=== PATIENT | male | born 1935 | race Caucasian/White ===

== ENCOUNTER 2016-11-30 06:06 | Inpatient (IN) | payer MEDICARE ==
[2016-11-30] MEDS ORDERED: HEPARIN 5000 UNITS/ML VIAL ONE (06:27)
[2016-11-30 07:04] LABS: AUTOMATED BASOPHIL 0.6 % (0-2); AUTOMATED EOSINOPHIL 2.1 % (0-5); AUTOMATED LYMPH 12.4 % (17-44); AUTOMATED MONOCYTE 7.2 % (3-10); AUTOMATED NEUTROPHIL 77.7 % (45-76); MPV 6.6 fL (7.4-10.4)
[2016-11-30 07:05] LABS: BLOOD UREA NITROGEN 13 MG/DL (9-20); CALCIUM 9.2 MG/DL (8.4-10.2); CALCULATED OSMOLALITY 263 MOs/Kg (270-290); CHLORIDE 100 mEq/L (98-107); GLUCOSE 119 MG/DL (70-99); SODIUM LEVEL 136 mEq/L (137-146)
[2016-11-30] MEDS ORDERED: ONDANSETRON HCL 4 MG/2 ML VIAL IV PRN ×2 (07:09→09:12)
[2016-11-30] MEDS ORDERED: PROMETHAZINE 25 MG/ML VIAL IV PRN (07:09)
[2016-11-30] MEDS ORDERED: ONDANSETRON HCL 4 MG ODT TAB PO PRN (07:09)
[2016-11-30] MEDS ORDERED: MEPERIDINE 25 MG/ML TUBEX IV PRN (07:09)
[2016-11-30] MEDS ORDERED: hydrALAZINE 20 MG/ML VIAL IV PRN (07:09)
[2016-11-30] MEDS ORDERED: LABETALOL 20 MG/4 ML SYRINGE IV PRN (07:09)
[2016-11-30] MEDS ORDERED: FENTANYL 100 MCG/2 ML VIAL IV PRN (07:09)
[2016-11-30] MEDS ORDERED: HYDROmorphone 1 MG INJECTION IV PRN ×2 (07:09)
--- NOTE | 2016-11-30 07:09 | SC.ANESPOS ---
[id number], Hemodynamically Stable, Pain Control Adequate Phase I & II Recovery Complete: Yes Apparent Anesthesia Complication: No : N PACU Discharge Time: 12:00 - Vital Signs Blood Pressure: 139/58 Pulse: 86 Resp Rate: 18 O2 Sat: 98 Temp: 98.8 F - Comments Anesthesia Discharge Time Report Time 12:00
--- NOTE | 2016-11-30 07:18 | HIM.ANES ---
Anesthesia Evaluation & Plan Diagnoses: CALCULUS IN BLADDER (11/30/16) OTHER RETENTION OF URINE (11/30/16) - Focused Review of Systems Cardiac History: Yes: Hx Hypertension, Hx Cardiac Catheterization (2006), Hx Coronary Stent (09/06/2007 STENT LAD), Hx Cardia Arrhythmia (PVC'S), Hx Cardiac Disorders HEENT: Yes: Hx Hearing Impairment, Cataract Removal, Other HEENT Problems Hx Other HEENT Surgery: TONSILLECTOMT Hx Other HEENT Problems: RHINNITIS Gastrointestinal: Yes: Hx Gastrointestinal Disorders, Hx Chronic Constipation, Hx Colonoscopy (POLYPECTOMY) No: Hx Gastroesophageal Reflux Disease Genitourinary: Yes: Hx Renal Disease (STAGE 2) Neurological/Musculoskeletal: Yes: Hx Neurological Disorders Other Neurological Problems: MEMORY LOSS Psychological: No Hx Depression, No Hx Mental/Emotional Disorders Endocrine: Yes: Hx Diet Controlled Diabetes Blood/Autoimmune: Yes: Hx Anemia No: Hx Blood Transfusions, Hx AIDS, Hx Hepatitis (type) Smoking Status: Former smoker Past Social History: Denies: Substance Use Disorder Hx Stress Test (date): Yes (07/28/2014EF 60% NO ISCHEMIA) Hx Echocardiogram (date): No Hx Chest Xray (date): No Surgical History: Yes: Ureter Stent (JJ) Other Surgical History: TONSILLECTOMT CYSTOSCOPY 11/21/16, 11/23/16 SKIN LESION REMOVAL FROM FACE - Focused Physical Exam Mallampati: Class II Thyromental Distance: Greater than 3 Neck: Full Range of Motion Dental: Normal - no significant findings Cardiovascular/Chest: Normal Respiratory: Lungs clear Any problems with anesthesia, including nausea and vomiting?: No Beta Letha given (if appropriate): N/A Does the patient have a history of Motion Sickness-: No Other: Problem List Problem Status Onset Cognitive impairment Acute Coronary artery disease Acute Hypertension Acute Intractable pain Acute Non-insulin dependent type 2 diabetes mellitus Acute Renal insufficiency Acute Sinus bradycardia Acute Stones in the urinary tract Acute Syncope Acute CBC/BMP/Other 11/30/16 06:40 11/30/16 06:40 Allergies Allergy/AdvReac Type Severity Reaction Status Date / Time No Known Allergies Allergy Verified 03/09/16 21:08 Home Medications Medication Instructions Recorded Last Taken Type Ascorbate Calcium [Vitamin C] 500 mg PO DAILY 10/31/14 11/18/16 History Aspirin (Enteric Coated) [Halfprin] 81 mg PO DAILY 10/31/14 11/24/16 09:43 History Calcium 500 mg PO DAILY 10/31/14 11/18/16 History Donepezil HCl [Aricept] 10 mg PO BID 10/31/14 11/18/16 History Lisinopril [Prinivil] 20 mg PO DAILY 10/31/14 11/24/16 09:43 History Multivitamin [Multiple Vitamins] 1 tab PO DAILY 10/31/14 11/24/16 11:45 History Simvastatin [Zocor] 40 mg PO DAILY 10/31/14 11/24/16 09:43 History Acetaminophen [Tylenol] 650 mg PO Q4-6H PRN 11/19/16 11/29/16 History Terazosin HCl [Hytrin] 4 mg PO DAILY 11/19/16 11/24/16 09:43 History Ciprofloxacin HCl [Cipro] 500 mg PO BID 11/24/16 11/29/16 History Hydrocodone/Acetaminophen [Vicodin 1 tab PO Q6H PRN 11/24/16 11/24/16 09:46 History 5-300 mg Tablet] Clopidogrel Bisulfate [Plavix] 75 mg PO DAILY 11/29/16 2 Weeks Ago History Doxycycline [Vibramycin] 100 mg PO BID 11/29/16 2 Weeks Ago History Finasteride [Proscar] 10 mg PO DAILY 11/29/16 2 Weeks Ago History Fish Oil/Dha/Epa [Fish Oil 1,200 2 each PO DAILY 11/29/16 2 Weeks Ago History mg Fish Oil] Naproxen Sodium [Aleve] 220 mg PO BID PRN 11/29/16 Unknown History Nitroglycerin Sublingual Tab [NTG 0.4 mg SL .Q5MIN X 3 PRN 11/29/16 Unknown History (NitroStat Sublingual Tab)] Ropinirole HCl [Requip] 0.25 mg PO HS PRN 11/29/16 2 Weeks Ago History Height and Weight Patient's height 5 ft 9 in Patient's weight 179 lb 6 oz BMI 26.4 - Anesthetic Plan Anesthesia Type: General ASA Class: 3 -: I have examined this patient and reviewed the medical record. The patient has been assessed prior to anesthesia. Risks and benefits of anesthesia and anesthetic technique options have been discussed and all questions answered. The patient accepts the risk and desires me to proceed with the planned anesthetic.
[2016-11-30] MEDS ORDERED: Levofloxacin 500 mg/100 ml D5W 500 MG/100 ML RTU IV ONE (07:20)
[2016-11-30 07:26] LABS: LEUKOCYTES/URINE 2+ (NEGATIVE); NITRITE/URINE NEG (NEGATIVE); RBC/URINE TNTC (0-2); URINE OCCULT BLOOD 3+ (NEG/TRACE); WBC/URINE TNTC (0-2)
[2016-11-30] MEDS ORDERED: [UNRECOGNIZED DRUG - OTHER] PO PRN (09:10)
[2016-11-30] MEDS ORDERED: ACETAMINOPHEN PO PRN (09:10)
[2016-11-30] MEDS ORDERED: ACETAMINOPHEN 325 MG/TAB TABLET PO PRN (09:10)
[2016-11-30] MEDS ORDERED: ROPINIROLE HCL 0.25 MG TABLET PO PRN (09:10)
[2016-11-30] MEDS ORDERED: HYDROCODONE PO PRN (09:10)
[2016-11-30] MEDS ORDERED: NITROGLYCERINE 0.4 MG TAB SL PRN (09:10)
[2016-11-30] MEDS ORDERED: HYDROmorphone 50 ML IV PRN (09:12)
--- NOTE | 2016-11-30 09:27 | HIMOPRPT ---
FINDING: DATE OF PROCEDURE: 11/30/16 PREOPERATIVE DIAGNOSIS: [BPH WITH BLADDER STONE ]. POSTOPERATIVE DIAGNOSIS: [ BPH WITH BLADDER STONE]. PROCEDURE PERFORMED: [SIMPLE RETROPUBIC PROSTATECTOMY AND VESICAL LITHOTOMY ]. ANESTHESIA: GENERAL [ ]. SURGEON: Macho Prabhakar MD/DR. SAL PROCEDURE IN DETAIL: [ THIS PATIENT WAS TAKEN TO THE OPERATING ROOM WAS GIVEN GENERAL ANESTHESIA HE WAS THEN PLACED IN SUPINE POSITION--HE WAS THEN PREPPED AND DRAPED IN USUAL STERILE FASHION ORIGINAL KAYE CATHETER HAD ALREADY BEEN REMOVED--- A TRANSVERSE INCISION WAS MADE FOR ABOUT 5 INCH --A FINGERBREADTH ABOVE THE SYMPHYSIS PUBIS WAS CARRIED THROUGH THE SUBCUTANEOUS TISSUE AND THE ANTERIOR RECTUS SHEATH]. THE UPPER AND LOWER LEAVES OF THE STATUS SHEATH CAREFULLY DISSECTED OFF FROM UNDERLYING MUSCLE WITH THE HELP OF CAUTERY-- THEN A SELF-RETAINING RETRACTOR WAS PLACED IN THE RETROPUBIC SPACE AND THE ANTERIOR SURFACE OF THE PROSTATE CAPSULE WAS NOW EXPOSED--- 2 STAY SUTURES WERE PLACED IN THE MIDLINE 1 AT THE BLADDER NECK AND THE OTHER 2 CM BELOW THAT USING 0 CHROMIC CATGUT SUTURE--- WITH THE HELP OF HER LONG-HANDLED CAUTERY INCISION WAS MADE IN THE ANTERIOR PROSTATIC CAPSULE ABOUT 5 CM THEN WITH THE HELP OF METZENBAUM SCISSORS BLUNT AND SHARP DISSECTION WAS CARRIED OUT BETWEEN THE CAPSULE AND THE ADENOMA-- FINALLY WITH THE HELP OF FINGER DISSECTION ENUCLEATION OF THE PROSTATIC ADENOMA WAS CARRIED OUT FOSSA WAS INSPECTED FOR ANY BLEEDERS WHICH WERE FULGURATED UNDER SUTURE-LIGATED BLADDER NECK WAS INSPECTED WE COULD SEE THE LOWER END OF THE DOUBLE-J STENT AND A BLADDER STONE THE BLADDER WAS REMOVED---A [address] KAYE CATHETER WAS PASSED THROUGH THE URETHRA THROUGH THE PROSTATIC FOSSA INTO THE BLADDER AND BALLOON INITIALLY INSTILLED WITH 15 CC OF WATER--- ANTERIOR PROSTATIC CAPSULE WAS CLOSED WITH 2 SEPARATE 0 CHROMIC CATGUT SUTURES STARTING FROM EACH ANGLE OF THE INCISION COMING TO THE MIDLINE--- ONCE THE CAPSULE WAS COMPLETELY CLOSED THE BALLOON WAS FILLED WITH A TOTAL OF 45 CC OF WATER CATHETER SEEMED TO BE QUITE FREE AND THEN A CONTINUOUS BLADDER IRRIGATION WAS STARTED--- A DRAIN WAS PLACED IN THE PRE RETROPUBIC SPACE AND BROUGHT OUT THROUGH A STAB WOUND BELOW THE MAIN INCISION ON THE LEFT SIDE AND ANCHORED TO THE SKIN WITH THE HELP OF TO A 2 O SILK SUTURE---TO RECTI MUSCLES WERE APPROXIMATED TOGETHER WITH THE HELP OF 0 CHROMIC INTERRUPTED CATGUT SUTURES--- FASCIA WAS CLOSED THE HELP OF INTERRUPTED 0 ETHIBOND SUTURES ---SUBCUTANEOUS LAYER WAS CLOSED THE HELP 0 3 VICRYL SUTURES AND SKIN WAS CLOSED WITH THE HELP OF ZACHERY---STERILE DRESSING WAS APPLIED OVER THE MAIN OPERATIVE SITE AND UROSTOMY THE DRAIN WAS PLACED OVER THE DRAIN SITE PATIENT TOLERATED THE PROCEDURE WELL AND WAS RETURNED TO THE RECOVERY ROOM AREA IN SATISFACTORY CONDITION HE LOST ABOUT 300 CC OF BLOOD OF WHICH 150 CC WAS REPLACED WITH THE HELP OF CELL SAVER.
[2016-11-30] MEDS: FENTANYL 100 MCG/2 ML VIAL IV PRN ×2 (09:42→10:05)
[2016-11-30] MEDS ORDERED: FENTANYL 100 MCG/2 ML VIAL ONE (09:43)
[2016-11-30] MEDS ORDERED: HYDROmorphone 1 MG INJECTION ONE (10:26)
[2016-11-30] MEDS ORDERED: HYDROmorphone 50 ML IV ONE (11:06)
[2016-11-30] MEDS ORDERED: FENTANYL 250 MCG/5 ML VIAL IV ONE (11:13)
[2016-11-30] MEDS ORDERED: PROPOFOL 200 MG/20 ML VIAL IV ONE (11:13)
[2016-11-30] MEDS ORDERED: ONDANSETRON HCL 4 MG/2 ML VIAL IV ONE (11:13)
[2016-11-30] MEDS ORDERED: LIDOCAINE 100 MG PFS IV ONE (11:13)
[2016-11-30] MEDS ORDERED: GLYCOPYRROLATE 1 MG VIAL IM ONE (11:13)
[2016-11-30] MEDS ORDERED: NEOSTIGMINE 1 MG/1 ML (1:1000) INJ 10 ML MDV IM ONE (11:13)
[2016-11-30] MEDS ORDERED: MIDAZOLAM 2 MG/2 ML VIAL IV ONE (11:13)
[2016-11-30] MEDS ORDERED: ROCURONIUM 50 MG/5 ML VIAL IV ONE (11:13)
[2016-11-30] MEDS: D5W/LR 1,000 ML IV SCH ×3 (13:11→21:58)
[2016-11-30] MEDS: TERAZOSIN 1 MG CAP PO SCH (13:12)
[2016-11-30] MEDS: LISINOPRIL 20 MG TAB PO SCH (13:12)
[2016-11-30] MEDS: DONEPEZIL HCL 10 MG TAB PO SCH ×2 (13:12→21:59)
[2016-11-30] MEDS: OMEGA-3-ACID ETHYL ESTERS 1000 MG CAP PO SCH (13:12)
[2016-11-30] MEDS: SIMVASTATIN 40 MG TAB PO SCH (13:13)
[2016-11-30] MEDS: VITAMINS, MULTIPLE CAP PO SCH (13:16)
[2016-11-30] MEDS: CALCIUM CARBONATE 500 MG TAB PO SCH (13:16)
[2016-11-30] MEDS: ASCORBIC ACID 500 MG TAB PO SCH (13:16)
[2016-11-30] MEDS ORDERED: Vaccine Screening Complete SCH (14:00)
[2016-11-30] MEDS: HYDROCODONE 5 MG/ACETAMIN 325 MG TAB PO PRN (21:57)
[2016-12-01] MEDS: D5W/LR 1,000 ML IV SCH ×3 (05:06→16:41)
[2016-12-01 07:33] LABS: AUTOMATED BASOPHIL 0.5 % (0-2); AUTOMATED EOSINOPHIL 0.5 % (0-5); AUTOMATED LYMPH 7.9 % (17-44); AUTOMATED MONOCYTE 6.4 % (3-10); AUTOMATED NEUTROPHIL 84.7 % (45-76); MPV 6.6 fL (7.4-10.4)
[2016-12-01 07:37] LABS: BLOOD UREA NITROGEN 12 MG/DL (9-20); CALCIUM 8.6 MG/DL (8.4-10.2); CALCULATED OSMOLALITY 261 MOs/Kg (270-290); CHLORIDE 101 mEq/L (98-107); GLUCOSE 149 MG/DL (70-99); SODIUM LEVEL 134 mEq/L (137-146)
[2016-12-01] MEDS: Levofloxacin 500 mg/100 ml D5W 500 MG/100 ML RTU IV SCH (08:59)
[2016-12-01] MEDS ORDERED: FISH OIL PO SCH (09:00)
[2016-12-01] MEDS ORDERED: EPA PO SCH (09:00)
[2016-12-01] MEDS ORDERED: DHA PO SCH (09:00)
[2016-12-01] MEDS ORDERED: Non-Formulary Medication ITEM (Multivitamin [Multiple Vitamins] 1 TAB) PO SCH (09:00)
[2016-12-01] MEDS ORDERED: CALCIUM 500 MG PO SCH (09:00)
[2016-12-01] MEDS ORDERED: TERAZOSIN HCL 4 MG PO SCH (09:00)
[2016-12-01] MEDS ORDERED: ASCORBATE CALCIUM 500 MG PO SCH (09:00)
[2016-12-01] MEDS: DONEPEZIL HCL 10 MG TAB PO SCH ×2 (09:20→19:53)
[2016-12-01] MEDS: SIMVASTATIN 40 MG TAB PO SCH (09:21)
[2016-12-01] MEDS: LISINOPRIL 20 MG TAB PO SCH (09:21)
[2016-12-01] MEDS: TERAZOSIN 1 MG CAP PO SCH (09:21)
[2016-12-01] MEDS: OMEGA-3-ACID ETHYL ESTERS 1000 MG CAP PO SCH (09:21)
[2016-12-01] MEDS: HYDROCODONE 5 MG/ACETAMIN 325 MG TAB PO PRN (10:24)
[2016-12-01] MEDS: CALCIUM CARBONATE 500 MG TAB PO SCH (11:34)
[2016-12-01] MEDS: VITAMINS, MULTIPLE CAP PO SCH (11:34)
[2016-12-01] MEDS: ASCORBIC ACID 500 MG TAB PO SCH (11:34)
--- NOTE | 2016-12-01 13:21 | PCM.UROPRO ---
Chief Complaint: PAIN AT OPERATION SITE Post Op Day #: 1 Post-op Assessment: Reports: Feels better, Pain is less, Tolerating liquids well Patient care reviewed: Yes Patient care reviewed and discussed with Nursing - Physical Exam Vital Signs: Temperature: 99.4 F (12/01/16 10:15) HR: 91 (12/01/16 10:15) RR: 18 (12/01/16 10:15) BP: 105/51 (12/01/16 10:15) Pulse Ox: 95 (12/01/16 10:15) General: Alert, Cooperative HEENT: Normal Respiratory: Normal - CTA Gastrointestinal: Soft, Bowel Sounds (NORMAL), Other (MINIMAL DRAINAGE FROM DRAIN SITE) Genitourinary: Catheter in Place Musculoskeletal/Extremities: Normal pulses Skin: Warm,Dry and Intact Result Diagrams: 12/01/16 06:52 12/01/16 06:52 Plan: OUT OF BED---PT TO HELP WITH AMBULATION FULL LIQUID---REG DIET
[2016-12-01] MEDS ORDERED: NS 500 ML IV ONE (15:20)
[2016-12-01] MEDS ORDERED: Medication Hold Instructions SCH (16:00)
--- NOTE | 2016-12-01 17:29 | HIMCONSMED ---
Consultation Date: 12/01/16 Requesting Physician: Macho Prabhakar Consulting Doctor: Apryl Flanagan Consult Reason: Medical Management Mr. Angel Mccullough is an 81 year old gentleman with prostate cancer who underwent suprapubic prostatectomy by Dr. Prabhakar. He has a history of anemia , some mild dementia, and hypertension but has developed post-operative hypotension. His hemoglobin was 11.2 on admission and has dropped to 8.8 post- operatively. so he was transfused one unit of blood by Dr. Prabhakar, and a medical consult was requested. His blood pressure is running around 90/40 but usually is closer to 150/76. He is diabetic. Chief Complaint: LOW BLOOD PRESSURE - Past Medical and Surgical History Cardiac History: Reports: Coronary Artery Disease, Hypertension, Cardiac Catheterization (2006), Hypercholesterolemia Respiratory History: Reports: COPD GI/ History: Reports: Renal Disease (STAGE 2), Kidney Stones, Gastroesophageal Reflux, Diverticulosis Systemic History: Reports: Anemia, Diabetes Musculoskeletal History: Reports: Osteoarthritis Psychological History: Denies: Depression, Substance Use Disorder Neurological History: Reports: Dementia (vascular) Past Surgical History: Reports: Cardiac Catheterization (2006), Other ( prostatectomy) Allergies No Known Allergies Allergy (Verified 11/30/16 12:24) Home Medications Ascorbate Calcium [Vitamin C] 500 mg PO DAILY 10/31/14 Aspirin (Enteric Coated) [Halfprin] 81 mg PO DAILY 10/31/14 Calcium 500 mg PO DAILY 10/31/14 Donepezil HCl [Aricept] 10 mg PO BID 10/31/14 Lisinopril [Prinivil] 20 mg PO DAILY 10/31/14 Multivitamin [Multiple Vitamins] 1 tab PO DAILY 10/31/14 Simvastatin [Zocor] 40 mg PO DAILY 10/31/14 Acetaminophen [Tylenol] 650 mg PO Q4-6H PRN 11/19/16 Terazosin HCl [Hytrin] 4 mg PO DAILY 11/19/16 Ciprofloxacin HCl [Cipro] 500 mg PO BID 11/24/16 Hydrocodone/Acetaminophen [Vicodin 5-300 mg Tablet] 1 tab PO Q6H PRN 11/24/16 Clopidogrel Bisulfate [Plavix] 75 mg PO DAILY 11/29/16 Fish Oil/Dha/Epa [Fish Oil 1,200 mg Fish Oil] 2 each PO DAILY 11/29/16 Nitroglycerin Sublingual Tab [NTG (NitroStat Sublingual Tab)] 0.4 mg SL .Q5MIN X 3 PRN 11/29/16 Ropinirole HCl [Requip] 0.25 mg PO HS PRN 11/29/16 - Social History Travel Outside of [place] in the Last 3 Months?: No Lives: with Spouse Smoking Status: Former smoker Social History: Denies: Alcohol Use, Substance Use Disorder - Family History Reports: Hypertension, Diabetes (BROTHER), Cancer (Mother colon cancer) - Review of Systems Yes Review of systems cannot be obtained due to the patient's medical condition Constitutional: Fatigue, Weakness, Weight loss Eyes: No Symptoms Reported, Cataracts Ears: Hearing Loss Nose: Congestion Mouth: Denture, Dry Mouth, Poor Dentition Throat/Neck: No Symptoms Reported, Snoring. negative: Pain, Swelling, Masses, Hoarseness, Thyroid enlargement Respiratory: Cough, Shortness of Breath, Wheezing, Dyspnea Cardiovascular: Orthopnea, PND. negative: Chest Pain, Edema Gastrointestinal: Nausea, Abdominal Pain. negative: Vomiting, Diarrhea, Melena , Dysphasia, Heartburn, Appetite Changes Genitourinary: Frequency, Hematuria, Flank Pain, Nocturia, Benign prostatic hyperplasia (BPH) Neurological: Dizziness, Headache, Numbness, Tremors, Changes in Orientation Integumentary: Itching, Pressure Sore (buttocks) Allergic/Immunologic: No Symptoms Reported Hematologic: Easy Bruising, Easy Bleeding, Anemia Endocrine: Weight Loss, Cold Intolerance Psychiatric: Anxiety, Depression - Physical Exam Vital Signs: Initial Vitals Temperature 97.9 F 11/30/16 07:40 Pulse Rate 72 11/30/16 07:40 Respiratory Rate 18 11/30/16 07:40 Blood Pressure 173/74 11/30/16 07:40 Pulse Oxygen Saturation 97 11/30/16 07:40 Constitutional: No apparent distress, Alert, Cachectic, Other (thin elderly whit man) Oriented to: Person, Place - HEENT Head: Normal Eye: Normal (PERRL: EOMI) Oropharynx: Normal, Membranes Dry, Other (dentures). negative: Exudate, Red Tympanic Membrane: Dull ENT EAC: Cerumen Nose: No Symptoms Reported. negative: Bleeding, Congestion, Discharge, Deformity Respiratory: Normal - CTA, Diminished. negative: Rales, Wheezes Cardiovascular: Normal (regular rhythm and rate). negative: Diastolic murmur, Systolic murmur - GI Auscultation: Normal Palpation: Normal (soft, nontender without mass) Tenderness: Non tender Tracy's Sign: Negative Rectal Exam: Deferred - Musculoskeletal Back: Normal Extremities: Normal Spine: non-tender, normal alignment, normal inspection - Integumentary Skin: Warm, Dry Lymphatics: Normal - Neurologic Memory Impaired: Short-term Motor Function: Normal Cranial Nerve: Normal Cerebellar: Normal Mood Description: Anxious Thought: Coherent Perception: Normal - Lab Results Laboratory Tests 12/01/16 12/01/16 06:52 06:52 WBC 9.0 Hgb 8.8 L D Hct 26.0 L Plt Count 322 Neut % (Auto) 84.7 H Lymph % (Auto) 7.9 L [place] % (Auto) 6.4 Sodium 134 L Potassium 4.1 Chloride 101 Carbon Dioxide 28 Anion Gap 9 BUN 12 Creatinine 0.80 Estimated GFR (MDRD) > 60 Glucose 149 H Calculated Osmolality 261 L Calcium 8.6 - Assessment (1) Hypotension I95.9 - HYPOTENSION, UNSPECIFIED Acute Present on Admission: Yes Qualifiers: Hypotension type: postprocedural hypotension Trimester: T Qualified Code( s): I95.81 - Postprocedural hypotension Will give additional IV fluids tonight, monitor H/H and transfuse as needed. syncopal episode could be due to sepsis or infection. Will culture urine and blood. He is already on IV Levaquin from Dr. Prabhakar. (2) Coronary artery disease I25.10 - ATHSCL HEART DISEASE OF [place] CORONARY ARTERY W/O ANG PCTRS Acute Qualifiers: Coronary Disease-Associated Artery/Lesion type: [place] artery [place] vs. transplanted heart: [place] heart Associated angina: without angina Qualified Code(s): I25.10 - Atherosclerotic heart disease of [place] coronary artery without angina pectoris History of CAD. Continuation of his IVAN-inhibitor at lower dose, and a statin. He apparently is unable to tolerate beta blockade as he is not taking this. Restart antiplatelet drugs in 5-7 days or when okay with Dr. PRABHAKAR. (3) Renal insufficiency N28.9 - DISORDER OF KIDNEY AND URETER, UNSPECIFIED Acute Present on Admission: Yes Continue to monitor closely. (4) Anemia in chronic kidney disease N18.9 - CHRONIC KIDNEY DISEASE, UNSPECIFIED; D63.1 - ANEMIA IN CHRONIC KIDNEY DISEASE Chronic Present on Admission: Yes Would hydrate patient first and follow renal function, O2 sat and H/H. If doing okay probably does not require further transfusion, unless he is having chest pain or other unstable symptoms. (5) Kidney stones N20.0 - CALCULUS OF KIDNEY Resolved Present on Admission: Yes F/U Per Dr. Prabhakar. Has ureteral stent. (6) Cognitive impairment R41.89 - OTH SYMPTOMS AND SIGNS W COGNITIVE FUNCTIONS AND AWARENESS Chronic Present on Admission: Yes No evidence of reversible cause for cognitive decline. Patient becomes very emotional. Case Care Discussed with: Patient, Family, Nursing Staff Total Time: 65 min
[2016-12-01] MEDS ORDERED: D5W/LR 1,000 ML IV SCH (19:13)
[2016-12-01] MEDS ORDERED: NS 1,000 ML IV ONE (19:24)
[2016-12-01] MEDS: NS 1,000 ML IV SCH ×2 (19:52→23:54)
[2016-12-02] MEDS: NS 1,000 ML IV SCH ×3 (05:21→16:11)
[2016-12-02 07:25] LABS: AUTOMATED BASOPHIL 0.3 % (0-2); AUTOMATED EOSINOPHIL 1.3 % (0-5); AUTOMATED LYMPH 9.7 % (17-44); AUTOMATED MONOCYTE 6.7 % (3-10); MPV 6.7 fL (7.4-10.4)
[2016-12-02 07:39] LABS: BLOOD UREA NITROGEN 13 MG/DL (9-20); CALC CORRECTED 10.6 MG/DL (8.4-10.2); CALCIUM 8.5 MG/DL (8.4-10.2); CALCULATED OSMOLALITY 262 MOs/Kg (270-290); CHLORIDE 104 mEq/L (98-107); GLUCOSE 104 MG/DL (70-99); SODIUM LEVEL 136 mEq/L (137-146); TOTAL PROTEIN 4.3 G/DL (6.3-8.2)
[2016-12-02] MEDS: Levofloxacin 500 mg/100 ml D5W 500 MG/100 ML RTU IV SCH (08:56)
[2016-12-02] MEDS: DONEPEZIL HCL 10 MG TAB PO SCH ×2 (09:00→22:29)
[2016-12-02] MEDS: OMEGA-3-ACID ETHYL ESTERS 1000 MG CAP PO SCH (09:02)
[2016-12-02] MEDS: SIMVASTATIN 40 MG TAB PO SCH (09:02)
[2016-12-02] MEDS: HYDROCODONE 5 MG/ACETAMIN 325 MG TAB PO PRN ×3 (09:07→22:35)
[2016-12-02] MEDS: LISINOPRIL 2.5 MG TAB PO SCH (10:34)
[2016-12-02] MEDS: CALCIUM CARBONATE 500 MG TAB PO SCH (12:06)
[2016-12-02] MEDS: VITAMINS, MULTIPLE CAP PO SCH (12:06)
[2016-12-02] MEDS: ASCORBIC ACID 500 MG TAB PO SCH (12:06)
--- NOTE | 2016-12-02 12:32 | PCM.UROPRO ---
Chief Complaint: FEELING MUCH BETTER--EATING REGULAR DIET--PAIN IS LESS Post Op Day #: 2 Post-op Assessment: Reports: Feels better, Pain is less, Tolerating liquids well , Tolerating Regular Diet, Catheter draining WNL, Other (SP DRAIN REMOVED) Patient care reviewed: Yes Patient care reviewed and discussed with Nursing - Physical Exam Vital Signs: Temperature: 98.1 F (12/02/16 12:02) HR: 63 (12/02/16 12:02) RR: 18 (12/02/16 12:02) BP: 125/50 (12/02/16 12:02) Pulse Ox: 97 (12/02/16 12:02) General: Alert HEENT: Normal Respiratory: Normal - CTA Result Diagrams: 12/02/16 06:36 12/02/16 06:36 Plan: TANSFUSE ONE MORE UNIT OF BLOOD---PT FOR AMBULATION
[2016-12-02] MEDS ORDERED: MAGNESIUM HYDROXIDE 30 ML BOTTLE PO PRN (12:33)
[2016-12-02] MEDS: Docusate Sodium 100 MG CAP PO SCH ×2 (13:55→22:29)
--- NOTE | 2016-12-02 16:47 | GENMEDPROG ---
Chief Complaint: Better today. Ambulated down the [place]. Still moderately anemic. Denies chest pain or shortness of breath Notes Reviewed: Yes Events from last night noted and discussed with Clinical Staff Current Medication List: Reviewed Currently: Reports: Abdominal Pain. Denies: Cough, Wheezing, BECERRIL, SOB, Nausea and Vomiting DVT Prophylaxis: Yes - Physical Examination Vital Signs and I&O: Last Vital Signs Temp 98.6 F 12/02/16 14:55 Pulse 87 12/02/16 15:55 Resp 20 12/02/16 15:55 BP 136/60 12/02/16 15:55 Pulse Ox 95 12/02/16 15:55 Oxygen Pulse Oxygen Saturation 95 O2 Device Room Air Oxygen Flow Rate 2 Fraction of Inspired Oxygen ( FIO2) Intake & Output 11/29/16 11/30/16 12/01/16 12/02/16 23:59 23:59 23:59 23:59 Intake Total 1218 4440 4412 Output Total 2800 1465 1850 Balance -1582 2975 2562 Patient's weight 81.363 kg 73.936 kg 76.294 kg 76.294 kg General: Alert, Oriented x3, Cooperative, No acute distress. negative: Well appearing (Ill-appearing) HEENT: Normal, PERRLA, EOMI, Anicteric Sclera Neck: Non-tender, Full range of motion, Normal Trachea alignment, Normal inspection. negative: JVD Lymphatics: Normal. negative: Adenopathy Respiratory: Normal - CTA Cardiovascular: Regular rate and rhythm, No Gallops,Rubs/Murmurs GI: Normal bowel sounds, Soft, Non tender Extremities/Musculoskeletal: Normal pulses. negative: Tenderness, Swelling, Edema Skin: Warm,Dry and Intact, No rashes, No breakdown, No significant lesion Neurological: Normal speech, Strength at 5/5 X4 ext, Normal tone, Cranial nerves 3-12 NL Psych/Mental Status: Appropriate, Normal Affect, Cooperative Lab/DI/Studies Reviewed: Laboratory Results - last 24 hr 11/30/16 12/01/16 12/02/16 06:40 19:55 06:36 WBC 7.7 RBC 2.78 L Hgb 8.4 L Hct 24.9 L MCV 90 MCH 30.1 MCHC 33.7 RDW 14.2 Plt Count 234 MPV 6.7 L Neut % (Auto) 82.0 H Lymph % (Auto) 9.7 L [place] % (Auto) 6.7 Eos % (Auto) 1.3 Baso % (Auto) 0.3 Absolute Neuts (auto) 6.31 Absolute Lymphs (auto) 0.69 Sodium Potassium Chloride Carbon Dioxide Anion Gap BUN Creatinine Estimated GFR (MDRD) Glucose Calculated Osmolality Lactic Acid 1.2 Calcium Corrected Calcium Total Bilirubin AST ALT Alkaline Phosphatase Total Protein Albumin Blood Type O POSITIVE Antibody Screen Negative Crossmatch See Detail 12/02/16 12/02/16 06:36 06:36 WBC RBC Hgb Hct MCV MCH MCHC RDW Plt Count MPV Neut % (Auto) Lymph % (Auto) [place] % (Auto) Eos % (Auto) Baso % (Auto) Absolute Neuts (auto) Absolute Lymphs (auto) Sodium 136 L Potassium 4.2 Chloride 104 Carbon Dioxide 28 Anion Gap 8 BUN 13 Creatinine 0.80 Estimated GFR (MDRD) > 60 Glucose 104 H Calculated Osmolality 262 L Lactic Acid 0.5 L Calcium 8.5 Corrected Calcium 10.6 H Total Bilirubin 0.6 AST 19 ALT 36 Alkaline Phosphatase 74 Total Protein 4.3 L Albumin 1.9 L Blood Type Antibody Screen Crossmatch - Assessment (1) Hypotension Acute I95.9 - HYPOTENSION, UNSPECIFIED Qualifiers: Hypotension type: postprocedural hypotension Trimester: T Qualified Code( s): I95.81 - Postprocedural hypotension Comment/Plan: Overall improving. Much more alert and interactive today. Ambulated down the [place] as. Continue to monitor H&H and transfuse if needed. Clinically doing better today. (2) Anemia in chronic kidney disease Chronic N18.9 - CHRONIC KIDNEY DISEASE, UNSPECIFIED; D63.1 - ANEMIA IN CHRONIC KIDNEY DISEASE Comment/Plan: Moderate. Continue to monitor H&H and transfuse as needed. (3) Coronary artery disease Acute I25.10 - ATHSCL HEART DISEASE OF [place] CORONARY ARTERY W/O ANG PCTRS Qualifiers: Coronary Disease-Associated Artery/Lesion type: [place] artery [place] vs. transplanted heart: [place] heart Associated angina: without angina Qualified Code(s): I25.10 - Atherosclerotic heart disease of [place] coronary artery without angina pectoris Comment/Plan: History of CAD. Continuation of his IVAN-inhibitor at lower dose, and a statin. He apparently is unable to tolerate beta blockade as he is not taking this. Restart antiplatelet drugs in 5-7 days or when okay with Dr. YORK. (4) Renal insufficiency Acute N28.9 - DISORDER OF KIDNEY AND URETER, UNSPECIFIED Comment/Plan: Creatinine normal at 0.8 (5) Cognitive impairment Chronic R41.89 - OTH SYMPTOMS AND SIGNS W COGNITIVE FUNCTIONS AND AWARENESS Comment/Plan: More alert and interactive. Continue to monitor (6) Kidney stones Resolved N20.0 - CALCULUS OF KIDNEY Comment/Plan: F/U Per Dr. York. Has ureteral stent. Case Care Discussed with: Patient
[2016-12-03] MEDS: NS 1,000 ML IV SCH ×4 (01:56→21:30)
[2016-12-03 04:34] VITALS: BMI 24.7
[2016-12-03 06:04] LABS: AUTOMATED BASOPHIL 0.5 % (0-2); AUTOMATED EOSINOPHIL 3.8 % (0-5); AUTOMATED LYMPH 11.3 % (17-44); AUTOMATED MONOCYTE 6.2 % (3-10); AUTOMATED NEUTROPHIL 78.2 % (45-76); MPV 7.1 fL (7.4-10.4)
[2016-12-03] MEDS: Docusate Sodium 100 MG CAP PO SCH ×3 (06:29→22:38)
[2016-12-03] MEDS: HYDROCODONE 5 MG/ACETAMIN 325 MG TAB PO PRN ×4 (06:33→22:37)
[2016-12-03 06:51] LABS: BLOOD UREA NITROGEN 15 MG/DL (9-20); CALCIUM 8.2 MG/DL (8.4-10.2); CALCULATED OSMOLALITY 261 MOs/Kg (270-290); CHLORIDE 104 mEq/L (98-107); GLUCOSE 104 MG/DL (70-99); SODIUM LEVEL 135 mEq/L (137-146)
[2016-12-03] MEDS: OMEGA-3-ACID ETHYL ESTERS 1000 MG CAP PO SCH (08:33)
[2016-12-03] MEDS: DONEPEZIL HCL 10 MG TAB PO SCH ×2 (08:33→22:37)
[2016-12-03] MEDS: Levofloxacin 500 mg/100 ml D5W 500 MG/100 ML RTU IV SCH (08:33)
[2016-12-03] MEDS: LISINOPRIL 2.5 MG TAB PO SCH (08:34)
[2016-12-03] MEDS: SIMVASTATIN 40 MG TAB PO SCH (08:34)
--- NOTE | 2016-12-03 11:02 | GENMEDPROG ---
Chief Complaint: Complains of pain but otherwise feels well. Hemoglobin better today. He has ambulated in the halls. No chest pain or shortness of breath. Notes Reviewed: Yes Events from last night noted and discussed with Clinical Staff Current Medication List: Reviewed Currently: Reports: Abdominal Pain. Denies: Cough, Wheezing, BECERRIL, SOB, Nausea and Vomiting DVT Prophylaxis: Yes - Physical Examination Vital Signs and I&O: Last Vital Signs Temp 98.6 F 12/02/16 14:55 Pulse 75 12/03/16 04:31 Resp 18 12/03/16 04:31 BP 151/53 L 12/03/16 04:31 Pulse Ox 91 12/03/16 04:31 Oxygen Pulse Oxygen Saturation 91 O2 Device Room Air Oxygen Flow Rate 2 Fraction of Inspired Oxygen ( FIO2) Intake & Output 11/30/16 12/01/16 12/02/16 12/03/16 23:59 23:59 23:59 23:59 Intake Total 1218 4440 4712 1518 Output Total 2800 1465 2050 600 Balance -1582 2975 2662 918 Patient's weight 73.936 kg 76.294 kg 76.294 kg 76.232 kg General: Alert, Oriented x3, Cooperative, No acute distress. negative: Well appearing (Ill-appearing) HEENT: Normal, PERRLA, EOMI, Anicteric Sclera Neck: Non-tender, Full range of motion, Normal Trachea alignment, Normal inspection. negative: JVD Lymphatics: Normal. negative: Adenopathy Respiratory: Normal - CTA Cardiovascular: Regular rate and rhythm, No Gallops,Rubs/Murmurs GI: Normal bowel sounds, Soft, Non tender Extremities/Musculoskeletal: Normal pulses. negative: Tenderness, Swelling, Edema Skin: Warm,Dry and Intact, No rashes, No breakdown, No significant lesion Neurological: Normal speech, Strength at 5/5 X4 ext, Normal tone, Cranial nerves 3-12 NL Psych/Mental Status: Appropriate, Normal Affect, Cooperative Lab/DI/Studies Reviewed: Laboratory Results - last 24 hr 11/30/16 12/03/16 12/03/16 06:40 05:16 05:16 WBC 7.2 RBC 2.95 L Hgb 8.9 L Hct 26.5 L MCV 90 MCH 30.2 MCHC 33.6 RDW 14.4 Plt Count 227 MPV 7.1 L Neut % (Auto) 78.2 H Lymph % (Auto) 11.3 L [place] % (Auto) 6.2 Eos % (Auto) 3.8 Baso % (Auto) 0.5 Absolute Neuts (auto) 5.62 Absolute Lymphs (auto) 0.79 Sodium 135 L Potassium 3.8 Chloride 104 Carbon Dioxide 27 Anion Gap 8 BUN 15 Creatinine 0.70 Estimated GFR (MDRD) > 60 Glucose 104 H Calculated Osmolality 261 L Calcium 8.2 L Blood Type O POSITIVE Antibody Screen Negative Crossmatch See Detail - Assessment (1) Hypotension Acute I95.9 - HYPOTENSION, UNSPECIFIED Qualifiers: Hypotension type: postprocedural hypotension Trimester: T Qualified Code( s): I95.81 - Postprocedural hypotension Comment/Plan: Resolved. Blood pressures are better today. He has ambulated in the halls. (2) Anemia in chronic kidney disease Chronic N18.9 - CHRONIC KIDNEY DISEASE, UNSPECIFIED; D63.1 - ANEMIA IN CHRONIC KIDNEY DISEASE Comment/Plan: Hemoglobin slightly better today at 8.9. No evidence of active bleeding. Continue to monitor. (3) Coronary artery disease Acute I25.10 - ATHSCL HEART DISEASE OF [place] CORONARY ARTERY W/O ANG PCTRS Qualifiers: Coronary Disease-Associated Artery/Lesion type: [place] artery [place] vs. transplanted heart: [place] heart Associated angina: without angina Qualified Code(s): I25.10 - Atherosclerotic heart disease of [place] coronary artery without angina pectoris Comment/Plan: History of CAD. Continuation of his IVAN-inhibitor at lower dose, and a statin. He apparently is unable to tolerate beta blockade as he is not taking this. Restart antiplatelet drugs in 5-7 days or when okay with Dr. YORK. (4) Renal insufficiency Acute N28.9 - DISORDER OF KIDNEY AND URETER, UNSPECIFIED Comment/Plan: Creatinine normal (5) Cognitive impairment Chronic R41.89 - OTH SYMPTOMS AND SIGNS W COGNITIVE FUNCTIONS AND AWARENESS Comment/Plan: More alert and interactive. Continue to monitor (6) Kidney stones Resolved N20.0 - CALCULUS OF KIDNEY Comment/Plan: F/U Per Dr. York. Has ureteral stent. Case Care Discussed with: Patient, Nursing Staff, Physical Therapy, Resource Management, Respiratory Therapy, Bad Credit Collector
[2016-12-03] MEDS: CALCIUM CARBONATE 500 MG TAB PO SCH (12:55)
[2016-12-03] MEDS: ASCORBIC ACID 500 MG TAB PO SCH (12:55)
[2016-12-03] MEDS: VITAMINS, MULTIPLE CAP PO SCH (12:55)
--- NOTE | 2016-12-03 14:43 | PCM.UROPRO ---
Chief Complaint: AFEBRILE, EATING BETTER---AMBULATING WITH WALKER AND PT ASSISSTANCE---Hb8.9 Gm Post Op Day #: 3 Post-op Assessment: Reports: Feels better, Pain is less, Tolerating liquids well , Tolerating Regular Diet, Catheter draining WNL, Other (SP DRAIN REMOVED) Patient care reviewed: Yes Patient care reviewed and discussed with Nursing - Physical Exam Vital Signs: Temperature: 98.6 F (12/02/16 14:55) HR: 75 (12/03/16 04:31) RR: 18 (12/03/16 04:31) BP: 151/53 (12/03/16 04:31) Pulse Ox: 91 (12/03/16 04:31) General: Alert, Oriented x3 HEENT: Normal Respiratory: Normal - CTA Cardiovascular: Regular rate Gastrointestinal: Soft, Bowel Sounds (NORMAL) Genitourinary: Penis (MILD EDEMA), Catheter in Place Musculoskeletal/Extremities: Normal pulses Skin: Warm,Dry and Intact Result Diagrams: 12/03/16 05:16 12/03/16 05:16 Plan: GIVE ONE MORE UNIT OF BLOOD---CHECK CBC TOMORROW--CONTINUE PROTEIN DRINKS
[2016-12-04] MEDS: Docusate Sodium 100 MG CAP PO SCH ×3 (05:52→21:19)
[2016-12-04] MEDS: HYDROCODONE 5 MG/ACETAMIN 325 MG TAB PO PRN ×3 (05:53→21:17)
[2016-12-04 07:03] LABS: MPV 6.6 fL (7.4-10.4)
[2016-12-04] MEDS: NS 1,000 ML IV SCH ×3 (07:36→17:41)
[2016-12-04] MEDS: OMEGA-3-ACID ETHYL ESTERS 1000 MG CAP PO SCH (08:37)
[2016-12-04] MEDS: LISINOPRIL 2.5 MG TAB PO SCH (08:37)
[2016-12-04] MEDS: DONEPEZIL HCL 10 MG TAB PO SCH ×2 (08:37→21:19)
[2016-12-04] MEDS: Levofloxacin 500 mg/100 ml D5W 500 MG/100 ML RTU IV SCH (08:37)
[2016-12-04] MEDS: SIMVASTATIN 40 MG TAB PO SCH (08:37)
--- NOTE | 2016-12-04 09:41 | PCM.UROPRO ---
Chief Complaint: AFEBRILE,FEELING BETTER---EATING BETTER Post Op Day #: 4 Post-op Assessment: Reports: No new complaints, Feels better, Pain is less, Tolerating liquids well, Tolerating Regular Diet, Catheter draining WNL, Other ( SP DRAIN REMOVED) Patient care reviewed: Yes Patient care reviewed and discussed with Nursing - Physical Exam Vital Signs: Temperature: 98.1 F (12/04/16 05:48) HR: 60 (12/04/16 05:48) RR: 19 (12/04/16 05:48) BP: 159/74 (12/04/16 05:48) Pulse Ox: 94 (12/04/16 05:48) General: Alert, Moderate distress HEENT: Normal Respiratory: Normal - CTA Genitourinary: Catheter in Place Musculoskeletal/Extremities: Normal pulses Skin: Warm,Dry and Intact Result Diagrams: 12/04/16 06:40 12/03/16 05:16 Plan: PT TO AMBULATE--CONTINUE CURRENT TREATMENT---MAY TRANSFER TO REHAB CENTER TOMORROW
[2016-12-04] MEDS: ASCORBIC ACID 500 MG TAB PO SCH (13:38)
[2016-12-04] MEDS: CALCIUM CARBONATE 500 MG TAB PO SCH (13:38)
[2016-12-04] MEDS: VITAMINS, MULTIPLE CAP PO SCH (13:38)
--- NOTE | 2016-12-04 15:12 | GENMEDPROG ---
Chief Complaint: Doing well with no complaints. Pain is improving. Hemoglobin is better today as well. Notes Reviewed: Yes Events from last night noted and discussed with Clinical Staff Current Medication List: Reviewed Currently: Reports: Abdominal Pain. Denies: Cough, Wheezing, BECERRIL, SOB, Nausea and Vomiting DVT Prophylaxis: Yes - Physical Examination Vital Signs and I&O: Last Vital Signs Temp 98.5 F 12/04/16 14:00 Pulse 72 12/04/16 14:00 Resp 18 12/04/16 14:00 BP 179/84 12/04/16 14:00 Pulse Ox 94 12/04/16 14:00 Oxygen Pulse Oxygen Saturation 94 O2 Device Room Air Oxygen Flow Rate 2 Fraction of Inspired Oxygen ( FIO2) Intake & Output 12/01/16 12/02/16 12/03/16 12/04/16 23:59 23:59 23:59 23:59 Intake Total 4440 4712 3116 1964 Output Total 1465 2050 2850 2275 Balance 2975 2662 266 -311 Patient's weight 76.294 kg 76.294 kg 76.232 kg 82.611 kg General: Alert, Oriented x3, Cooperative, Moderate distress HEENT: Normal, PERRLA, EOMI, Anicteric Sclera Neck: Non-tender, Full range of motion, Normal Trachea alignment. negative: JVD Lymphatics: Normal. negative: Adenopathy Respiratory: Normal - CTA Cardiovascular: Regular rate and rhythm, No Gallops,Rubs/Murmurs GI: Normal bowel sounds Extremities/Musculoskeletal: Normal pulses. negative: Tenderness Skin: Warm,Dry and Intact, No rashes, No breakdown Neurological: Normal Steady Gait, Normal speech, Strength at 5/5 X4 ext Psych/Mental Status: Appropriate, Normal Affect, Cooperative Lab/DI/Studies Reviewed: Laboratory Results - last 24 hr 11/30/16 12/04/16 06:40 06:40 WBC 6.5 RBC 3.43 L Hgb 10.4 L D Hct 30.7 L MCV 89 MCH 30.2 MCHC 33.8 RDW 14.5 Plt Count 251 MPV 6.6 L Blood Type O POSITIVE Antibody Screen Negative Crossmatch See Detail - Assessment (1) Hypotension Acute I95.9 - HYPOTENSION, UNSPECIFIED Qualifiers: Hypotension type: postprocedural hypotension Trimester: T Qualified Code( s): I95.81 - Postprocedural hypotension Comment/Plan: Doing well. Blood pressures are stable. Stable from medical standpoint (2) Anemia in chronic kidney disease Chronic N18.9 - CHRONIC KIDNEY DISEASE, UNSPECIFIED; D63.1 - ANEMIA IN CHRONIC KIDNEY DISEASE Comment/Plan: Hemoglobin better. Continue to monitor. (3) Coronary artery disease Acute I25.10 - ATHSCL HEART DISEASE OF [place] CORONARY ARTERY W/O ANG PCTRS Qualifiers: Coronary Disease-Associated Artery/Lesion type: [place] artery [place] vs. transplanted heart: [place] heart Associated angina: without angina Qualified Code(s): I25.10 - Atherosclerotic heart disease of [place] coronary artery without angina pectoris Comment/Plan: Continue home medications. Restart antiplatelet medication when stable from surgical standpoint (4) Renal insufficiency Acute N28.9 - DISORDER OF KIDNEY AND URETER, UNSPECIFIED Comment/Plan: Creatinine normal (5) Cognitive impairment Chronic R41.89 - OTH SYMPTOMS AND SIGNS W COGNITIVE FUNCTIONS AND AWARENESS Comment/Plan: More alert and interactive. Continue to monitor (6) Kidney stones Resolved N20.0 - CALCULUS OF KIDNEY Comment/Plan: F/U Per Dr. Prabhakar. Has ureteral stent. Case Care Discussed with: Patient, Family, Nursing Staff, Physical Therapy, Resource Management, Respiratory Therapy, Net Sql Developer
[2016-12-05] MEDS: HYDROCODONE 5 MG/ACETAMIN 325 MG TAB PO PRN ×3 (01:50→13:27)
[2016-12-05] MEDS: NS 1,000 ML IV SCH ×2 (04:18→11:10)
[2016-12-05] MEDS: Docusate Sodium 100 MG CAP PO SCH ×2 (05:37→13:22)
[2016-12-05] MEDS: Levofloxacin 500 mg/100 ml D5W 500 MG/100 ML RTU IV SCH (08:30)
[2016-12-05] MEDS: OMEGA-3-ACID ETHYL ESTERS 1000 MG CAP PO SCH (08:31)
[2016-12-05] MEDS: SIMVASTATIN 40 MG TAB PO SCH (08:31)
[2016-12-05] MEDS: LISINOPRIL 2.5 MG TAB PO SCH (08:31)
[2016-12-05] MEDS: DONEPEZIL HCL 10 MG TAB PO SCH (08:31)
[2016-12-05] MEDS: VITAMINS, MULTIPLE CAP PO SCH (11:10)
[2016-12-05] MEDS: CALCIUM CARBONATE 500 MG TAB PO SCH (11:10)
[2016-12-05] MEDS: ASCORBIC ACID 500 MG TAB PO SCH (11:10)
--- NOTE | 2016-12-05 12:55 | PCM.DCS92 ---
- Final/Secondary Discharge Diagnosis (1) BPH w/o urinary obs/LUTS Acute N40.0 - BENIGN PROSTATIC HYPERPLASIA WITHOUT LOWER URINRY TRACT SYMP P (2) BPH (benign prostatic hypertrophy) with urinary retention Resolved N40.1 - BENIGN PROSTATIC HYPERPLASIA WITH LOWER URINARY TRACT SYMP; R33.8 - OTHER RETENTION OF URINE Discharge Disposition: Inpatient Rehab Unit Discharge Condition: Fair Cognitive Discharge Status: Unimpaired Fuctional Discharge Status: Walker Assistance Physician Follow up/Referrals: Macho Prabhakar MD [Staff Physician] - Listed Time (MONDAY/ MONDAY) Home Medications/ New Prescriptions: Continue Simvastatin [Zocor] 40 mg PO DAILY Lisinopril [Prinivil] 20 mg PO DAILY Multivitamin [Multiple Vitamins] 1 tab PO DAILY Donepezil HCl [Aricept] 10 mg PO BID Calcium 500 mg PO DAILY Aspirin (Enteric Coated) [Halfprin] 81 mg PO DAILY Ascorbate Calcium [Vitamin C] 500 mg PO DAILY Acetaminophen [Tylenol] 650 mg PO Q4-6H PRN PRN Reason: Pain Terazosin HCl [Hytrin] 4 mg PO DAILY Ciprofloxacin HCl [Cipro] 500 mg PO BID Ropinirole HCl [Requip] 0.25 mg PO HS PRN PRN Reason: LEG CRAMPS Nitroglycerin Sublingual Tab [NTG (NitroStat Sublingual Tab)] 0.4 mg SL .Q5MIN X 3 PRN PRN Reason: Chest Pain Or Discomfort Fish Oil/Dha/Epa [Fish Oil 1,200 mg Fish Oil] 2 each PO DAILY Hydrocodone/Acetaminophen [Vicodin 5-300 mg Tablet] 1 tab PO Q6H PRN #30 PRN Reason: Pain Discontinued Clopidogrel Bisulfate [Plavix] 75 mg PO DAILY Diet at Discharge: Regular Activity: Other (see below) (PT FOR AMBUATION) Call Office For: Fever over 101 F - DC Summary Notes HPI/Notes: THIS PT HAS A LONG H/O PROSTATISM--WITH SLOW STREAM, NOCTURIAX4--EVENTUALLY WENT INTO AUR---CYSTO SHOWED LARGE OBSTRUCTING PROSTATE-- NOW HERE FOR OPEN PROSTATECTOMY Hospital Course Note:: THIS PATIENT WAS BROUGHT IN WITH URINARY RETENTION AND ON ADMISSION HE UNDERWENT SIMPLE OPEN RETROPUBIC PROSTATECTOMY AND VESICAL LITHOTOMY POSTOPERATIVELY HE DID WELL HIS DRAIN WAS REMOVED AFTER 48 HOURS HE WAS STARTED ON LIQUID DIET AND EVENTUALLY ON A REGULAR DIET WITHIN 3 DAYS OF SURGERY---THE PATIENT WAS ALSO STARTED ON PHYSICAL THERAPY WITH A WALKER WITH AMBULATION IN THE HALLWAY WITH ASSISTANCE HE DID HAVE A SIGNIFICANTLY LOWERED HEMATOCRIT POSTOP AND WAS GIVEN A TOTAL OF 3 UNITS OF BLOOD HIS HEMOGLOBIN WAS NOW OVER 10 G --HE WAS EATING WELL-- KAYE CATHETER WAS DRAINING CLEAR URINE AND IS BEING DISCHARGED FOR REHAB TO [facility] ---WILL BE FOLLOWED UP IN THE OFFICE ON MONDAY OR MONDAY WHEN ZACHERY WILL BE REMOVED AND POSSIBLY A TRIAL OF VOIDING WILL BE GIVEN--- HIS PATHOLOGY REPORT IS STILL PENDING ---DR. MIGUEL ALSO SAW HIM FOR MEDICAL CONSULTATION BECAUSE OF HISTORY OF HYPERTENSION Discharge summary on patient named LAKIA VERMA admitted to [facility] on 11/30/16 by Macho Prabhakar MD. Date of discharge is [].
[2016-12-05 13:45] VITALS: BP 163/79; PULSE 74; TEMP 98.5
--- NOTE | 2016-12-05 14:00 | GENMEDPROG ---
Chief Complaint: Doing well with no complaints. Mild pain. [facility] Notes Reviewed: Yes Events from last night noted and discussed with Clinical Staff Current Medication List: Reviewed Currently: Reports: Abdominal Pain. Denies: Cough, Wheezing, BECERRIL, SOB, Nausea and Vomiting DVT Prophylaxis: Yes - Physical Examination Vital Signs and I&O: Last Vital Signs Temp 98.5 F 12/05/16 13:42 Pulse 74 12/05/16 13:42 Resp 20 12/05/16 13:42 BP 163/79 12/05/16 13:42 Pulse Ox 96 12/05/16 13:42 Oxygen Pulse Oxygen Saturation 96 O2 Device Room Air Oxygen Flow Rate 2 Fraction of Inspired Oxygen ( FIO2) Intake & Output 12/02/16 12/03/16 12/04/16 12/05/16 23:59 23:59 23:59 23:59 Intake Total 4712 3116 3196 3150 Output Total 2050 2850 3125 1725 Balance 2662 813 55 4404 Patient's weight 76.294 kg 76.232 kg 82.611 kg General: Alert, Oriented x3, Cooperative, Moderate distress HEENT: Normal, PERRLA, EOMI, Anicteric Sclera Neck: Non-tender, Full range of motion, Normal Trachea alignment. negative: JVD Lymphatics: Normal. negative: Adenopathy Respiratory: Normal - CTA Cardiovascular: Regular rate and rhythm, No Gallops,Rubs/Murmurs GI: Normal bowel sounds Extremities/Musculoskeletal: Normal pulses. negative: Tenderness Skin: Warm,Dry and Intact, No rashes, No breakdown Neurological: Normal Steady Gait, Normal speech, Strength at 5/5 X4 ext Psych/Mental Status: Appropriate, Normal Affect, Cooperative - Assessment (1) Hypotension Acute I95.9 - HYPOTENSION, UNSPECIFIED Qualifiers: Hypotension type: postprocedural hypotension Trimester: T Qualified Code( s): I95.81 - Postprocedural hypotension Comment/Plan: Doing well. Blood pressures are stable. Stable from medical standpoint (2) Anemia in chronic kidney disease Chronic N18.9 - CHRONIC KIDNEY DISEASE, UNSPECIFIED; D63.1 - ANEMIA IN CHRONIC KIDNEY DISEASE Comment/Plan: Hemoglobin better. Continue to monitor. (3) Coronary artery disease Acute I25.10 - ATHSCL HEART DISEASE OF [place] CORONARY ARTERY W/O ANG PCTRS Qualifiers: Coronary Disease-Associated Artery/Lesion type: [place] artery [place] vs. transplanted heart: [place] heart Associated angina: without angina Qualified Code(s): I25.10 - Atherosclerotic heart disease of [place] coronary artery without angina pectoris Comment/Plan: Continue home medications. Restart antiplatelet medication when stable from surgical standpoint (4) Renal insufficiency Acute N28.9 - DISORDER OF KIDNEY AND URETER, UNSPECIFIED Comment/Plan: Creatinine normal (5) Cognitive impairment Chronic R41.89 - OTH SYMPTOMS AND SIGNS W COGNITIVE FUNCTIONS AND AWARENESS Comment/Plan: More alert and interactive. Continue to monitor (6) Kidney stones Resolved N20.0 - CALCULUS OF KIDNEY Comment/Plan: F/U Per Dr. Prabhakar. Has ureteral stent.
--- NOTE | 2016-12-06 10:13 | PCM.DCS92 ---
- Final/Secondary Discharge Diagnosis (1) BPH w/o urinary obs/LUTS Acute N40.0 - BENIGN PROSTATIC HYPERPLASIA WITHOUT LOWER URINRY TRACT SYMP (2) BPH (benign prostatic hypertrophy) with urinary retention Resolved N40.1 - BENIGN PROSTATIC HYPERPLASIA WITH LOWER URINARY TRACT SYMP; R33.8 - OTHER RETENTION OF URINE Discharge Disposition: Inpatient Rehab Unit Discharge Condition: Fair Cognitive Discharge Status: Unimpaired Fuctional Discharge Status: Walker Assistance Physician Follow up/Referrals: Macho Prabhakar MD [Staff Physician] - Listed Time (MONDAY/ MONDAY) Home Medications/ New Prescriptions: Continue Simvastatin [Zocor] 40 mg PO DAILY Lisinopril [Prinivil] 20 mg PO DAILY Multivitamin [Multiple Vitamins] 1 tab PO DAILY Donepezil HCl [Aricept] 10 mg PO BID Calcium 500 mg PO DAILY Aspirin (Enteric Coated) [Halfprin] 81 mg PO DAILY Ascorbate Calcium [Vitamin C] 500 mg PO DAILY Acetaminophen [Tylenol] 650 mg PO Q4-6H PRN PRN Reason: Pain Terazosin HCl [Hytrin] 4 mg PO DAILY Ciprofloxacin HCl [Cipro] 500 mg PO BID Ropinirole HCl [Requip] 0.25 mg PO HS PRN PRN Reason: LEG CRAMPS Nitroglycerin Sublingual Tab [NTG (NitroStat Sublingual Tab)] 0.4 mg SL .Q5MIN X 3 PRN PRN Reason: Chest Pain Or Discomfort Fish Oil/Dha/Epa [Fish Oil 1,200 mg Fish Oil] 2 each PO DAILY Hydrocodone/Acetaminophen [Vicodin 5-300 mg Tablet] 1 tab PO Q6H PRN #30 PRN Reason: Pain Discontinued Clopidogrel Bisulfate [Plavix] 75 mg PO DAILY Diet at Discharge: Regular Activity: Other (see below) (PT FOR AMBUATION) Call Office For: Fever over 101 F - DC Summary Notes HPI/Notes: THIS PT HAS A LONG H/O PROSTATISM--WITH SLOW STREAM, NOCTURIAX4--EVENTUALLY WENT INTO AUR---CYSTO SHOWED LARGE OBSTRUCTING PROSTATE-- NOW HERE FOR OPEN PROSTATECTOMY Hospital Course Note:: THIS PATIENT WAS BROUGHT IN WITH URINARY RETENTION AND ON ADMISSION HE UNDERWENT SIMPLE OPEN RETROPUBIC PROSTATECTOMY AND VESICAL LITHOTOMY POSTOPERATIVELY HE DID WELL HIS DRAIN WAS REMOVED AFTER 48 HOURS HE WAS STARTED ON LIQUID DIET AND EVENTUALLY ON A REGULAR DIET WITHIN 3 DAYS OF SURGERY---THE PATIENT WAS ALSO STARTED ON PHYSICAL THERAPY WITH A WALKER WITH AMBULATION IN THE [place] WITH ASSISTANCE HE DID HAVE A SIGNIFICANTLY LOWERED HEMATOCRIT POSTOP AND WAS GIVEN A TOTAL OF 3 UNITS OF BLOOD HIS HEMOGLOBIN WAS NOW OVER 10 G --HE WAS EATING WELL-- KAYE CATHETER WAS DRAINING CLEAR URINE AND IS BEING DISCHARGED FOR REHAB TO [facility] ---WILL BE FOLLOWED UP IN THE OFFICE ON MONDAY OR MONDAY WHEN ZACHERY WILL BE REMOVED AND POSSIBLY A TRIAL OF VOIDING WILL BE GIVEN--- HIS PATHOLOGY REPORT IS STILL PENDING ---DR. MIGUEL ALSO SAW HIM FOR MEDICAL CONSULTATION BECAUSE OF HISTORY OF HYPERTENSION Discharge summary on patient named LAKIA VERMA admitted to [facility] on 11/30/16 by Macho Prabhakar MD. Date of discharge is []. <Electronically signed by Macho Prabhakar MD> 12/05/16 [id number] Courtesy Copy to:: Deedee Young MD~ MTDD
== END 2016-12-05 17:55 | DRG 708 ==
LOC: SDC 06:06 → MPS3 12:11
PROVIDERS: ADMIT Urology; ATTEND Urology
PROC: 0TCB0ZZ Extirpation of Matter from Bladder, Open Approach (ICD-10-PCS; 2016-11-30)
PROC: 0VT00ZZ Resection of Prostate, Open Approach (ICD-10-PCS; principal; 2016-11-30 07:15)
PROC: 30233N1 Transfusion of Nonautologous Red Blood Cells into Peripheral Vein, Percutaneous Approach (ICD-10-PCS; 2016-12-01)
DX: N40.1 Benign prostatic hyperplasia with lower urinary tract symptoms (principal); J44.9 Chronic obstructive pulmonary disease, unspecified; F01.50 Vascular dementia, unspecified severity, without behavioral disturbance, psychotic disturbance, mood disturbance, and anxiety; R33.8 Other retention of urine; I25.10 Atherosclerotic heart disease of native coronary artery without angina pectoris; E78.00 Pure hypercholesterolemia, unspecified; M19.90 Unspecified osteoarthritis, unspecified site; K21.9 Gastro-esophageal reflux disease without esophagitis; Z79.82 Long term (current) use of aspirin; Z79.899 Other long term (current) drug therapy; I95.81 Postprocedural hypotension; Z87.891 Personal history of nicotine dependence; I12.9 Hypertensive chronic kidney disease with stage 1 through stage 4 chronic kidney disease, or unspecified chronic kidney disease; N18.9 Chronic kidney disease, unspecified; D63.1 Anemia in chronic kidney disease; R41.89 Other symptoms and signs involving cognitive functions and awareness; N21.0 Calculus in bladder
CPT/HCPCS: 36430; 80048; 80053; 81001; 83605; 85025; 85027; 86850; 86900; 86901; 86920; 87040; 87086; 97162; G0237; J1170; J1644; J1956; J2001; J2250; J2405; J2710; J3010; J3490; P9016